=== PATIENT | male | born 1965 | race Caucasian/White ===

== ENCOUNTER 2016-05-06 10:28 | Emergency (ER) | payer OTHER ==
[2016-05-06 11:11] VITALS: BP 113/82; PULSE 100; RESP 20; TEMP 98.4; O2SAT 98
[2016-05-06 11:13] LABS: COLOR YELLOW; LEUKOCYTE ESTERASE,URINE NEGATIVE (NEGATIVE); NITRITE,URINE NEGATIVE (NEGATIVE); PH,URINE 5.5 (5.0-7.5)
--- NOTE | 2016-05-06 12:01 | UCPHY ---
Addendum entered and electronically signed by Anny Valdez NP 05/06/16 12:03 : Add to medical decision-making: GC and chlamydia are pending, patient counseled regarding this Original Note: H & P Patient Type: Established Chief Complaint Nursing Narrative: pt with uti and base of penis pain x 2 wks. Anxious. Currently on abx bactrim bid for 2 wks. Appt to see [facility] on Friday Time Seen by Provider: 05/06/16 11:58 HPI/ROS: HPI: 51-year-old male presents to urgent care with chief concern dysuria, left testicular discomfort. Dysuria onset 11 days ago. Was put on Bactrim by a primary care provider. Symptoms improved but did not entirely resolved. Reports left testicular discomfort intermittently x1 year that is always associated with low back pain. Reports chronic low back pain since 2002. Denies fever, chills, URI symptoms, shortness of breath, abdominal pain, nausea, vomiting, diarrhea. Denies personal history of STI or penile discharge. I am very worried about my prostate. Has a family history of prostate CA. ROS:10 point review of systems is negative other than as stated in HPI Source: Patient - Personal History Tetanus Vaccine Date: 2013 - Medical/Surgical History Hx Asthma: No Hx Chronic Respiratory Disease: No Hx Diabetes: No Hx Cardiac Disease: No Hx Renal Disease: No Hx Cirrhosis: No Hx Alcoholism: No Hx HIV/AIDS: No Hx Splenectomy or Spleen Trauma: No Other PMH: PCP Jorge Luis Agosto. HTN,Chronic back and neck pain. Tonsilectomy. Tetanus UTD. Flu Vacc NONE - Family History Significant Family History: Other (Father had prostate CA) - Social History Smoking Status: Never smoked Alcohol Use: Rarely Drug Use: None Additional Social History: - Physical Exam Exam: Vital signs stable, reviewed by me General: Awake, alert, calm, cooperative. No acute distress. Head: Normalocephalic. Atraumatic. EENT: PERRLA. EOMI. No pallor or injection. Anicteric Neck: Supple, nontender. No lymphadenopathy. Full range of motion. No meningismus. Respiratory: Breathing unlabored. Breath sounds equal bilaterally and clear to auscultation. No adventitious sounds. CV: Chest nontender, atraumatic. Heart rate regular. No murmur.Brisk cap refill all extremities. GI: Abdomen soft, nontender. Bowel sounds normoactive and positive x4 quadrants. : No suprapubic tenderness. No CVA or flank tenderness. Testicular: No erythema, no swelling, no lesions. No tenderness to palpation. Prostate: Declined Neuro: Alert. Oriented x 3. Speech clear. Nonfocal cranial nerves throughout. Sensation intact all extremities. Skin: Skin warm, dry, intact. No rashes, abrasions, or lacerations. Skin turgor normal. Extremities: Full range of motion in all 4 extremities. Strength 5+ all extremities. Constitutional: Initial Vital Signs Temperature (C) 36.9 C 05/06/16 11:04 Heart Rate 100 05/06/16 11:04 Respiratory Rate 20 05/06/16 11:04 Blood Pressure 113/82 H 05/06/16 11:04 O2 Sat (%) 98 05/06/16 11:04 O2 Delivery Mode Room Air Allergies/Adverse Reactions: No Known Allergies Allergy (Verified 05/06/16 11:01) Home Medications: Medication Instructions Recorded Lisinopril 10/23/15 Oxycodone HCl ER 05/06/16 Medical Decision Making ED Course/Re-evaluation: 51-year-old male presents to urgent care with dysuria. Also reports intermittent left testicular discomfort for 1 year. Urinalysis is negative. Patient has been on Bactrim for the past week. I offered a ultrasound of the left testicle and the patient declines. He has a appointment in 2 days with [facility] for follow-up. Differential Diagnosis: Differential includes but is not limited to UTI, STI, prostatitis, epididymitis , orchitis, urogenital CA - Data Points Laboratory Results: 05/06/16 11:04 Urine Color YELLOW Urine Appearance CLEAR Urine pH 5.5 (5.0-7.5) Ur Specific Jeremiah 1.020 (1.002-1.030) Urine Protein NEGATIVE (NEGATIVE) Urine Ketones NEGATIVE (NEGATIVE) Urine Blood NEGATIVE (NEGATIVE) Urine Nitrate NEGATIVE (NEGATIVE) Urine Bilirubin NEGATIVE (NEGATIVE) Urine Urobilinogen 0.2 EU (0.2-1.0) Ur Leukocyte Esterase NEGATIVE (NEGATIVE) Urine Glucose NEGATIVE (NEGATIVE) C.trachomatis RNA (TMA) Pending N.gonorrhoeae RNA (TMA) Pending Departure - Departure Disposition: Home, Routine, Self-Care Clinical Impression: Dysuria, Testicular discomfort Condition: Good Instructions: Dysuria (ED) Additional Instructions: Plan: As discussed, your urinalysis was negative Please follow up as planned with [facility] on Friday May return promptly for recheck should her symptoms worsen - PQRS PQRS Measurement: Not applicable
[2016-05-07 14:02] LABS: CHLAMYDIA AMPLIFICATION GENPRB NEGATIVE (NEGATIVE)
== END 2016-05-06 12:04 | disposition home or self-care (01) ==
LOC: CED 10:28
DX: R30.0 Dysuria (principal); N50.812 Left testicular pain; I10 Essential (primary) hypertension
CPT/HCPCS: 81003-PO; 99214-PO; G0463-PO

== ENCOUNTER → 2016-06-18 | Outpatient (CLI) | payer OTHER | LOC: FIMAGING 10:00 | PROVIDERS: ATTEND Physician Assistant | DX: M54.16 Radiculopathy, lumbar region (principal); M51.36 Other intervertebral disc degeneration, lumbar region; M51.37 Other intervertebral disc degeneration, lumbosacral region; M12.9 Arthropathy, unspecified ==